=== PATIENT | female | born 1940 | race Caucasian/White ===

== ENCOUNTER 2018-11-07 10:52 | Emergency (ER) | payer MEDICARE ==
[~2018-11-07] VITALS: Ht 157.5 cm; Wt 46.8 kg
[2018-11-07 11:12] VITALS: BP 133/70
[2018-11-07] MEDS ORDERED: CYCL-1 PO (12:48)
[2018-11-07] MEDS ORDERED: IBUP-1984 PO (12:48)
[2018-11-07] MEDS ORDERED: ACET-2119 PO (12:48)
[2018-11-07] MEDS ORDERED: ketorolac tromethamine 15mg/ml inj. IM ONE (12:50)
[2018-11-07] MEDS ORDERED: HYDROcodone/acetaminophen 5mg/325mg tablet PO ONE (12:50)
== END 2018-11-07 13:46 | disposition home or self-care (01) ==
LOC: ER 10:53
DX: G89.29 Other chronic pain (principal); M54.89 Other dorsalgia; M40.209 Unspecified kyphosis, site unspecified; Z79.899 Other long term (current) drug therapy
CPT/HCPCS: 96372; 99284; J1885

== ENCOUNTER 2023-11-30 17:02 | Emergency (ER) | payer MEDICARE ==
[~2023-11-30] VITALS: Ht 152.4 cm; Wt 40.9 kg
[~2023-11-30 17:02] MED LIST: CYCL-1 PO
[2023-11-30 17:53] LABS: BASOPHILS # (AUTO) 0.1 X10'3 (0-0.2); HEMOGLOBIN 11.8 g/dl (12.0-16.0); NEUTROPHILS # (AUTO) 2.7 X10'3 (1.8-7.7)
[2023-11-30 17:55] LABS: BASOPHILS % (AUTO) 1.1 % (0-1); EOSINOPHILS % (AUTO) 0.9 % (0-6); LYMPHOCYTES # (AUTO) 1.5 X10'3 (1.1-4.8); LYMPHOCYTES % (AUTO) 32.1 % (21-51); MEAN CORPUSCULAR HEMOGLOBIN 30.9 PG (27.0-31.0); MEAN CORPUSCULAR HGB CONC 32.8 g/dL (33.0-36.5); MEAN CORPUSCULAR VOLUME 94.2 FL (78-98); MEAN PLATELET VOLUME 8.8 FL (7.4-10.4); MONOCYTES # (AUTO) 0.4 X10'3 (0-0.9); MONOCYTES % (AUTO) 7.8 % (2-12); NEUTROPHILS % (AUTO) 58.1 % (42-75); PLATELET COUNT 173 X10'3 (140-440); RED BLOOD COUNT 3.82 X10'6 (4.20-5.60); RED CELL DISTRIBUTION WIDTH 13.9 % (11.5-14.5); WHITE BLOOD COUNT 4.7 X10'3 (4.5-11.0)
[2023-11-30 18:05] LABS: ALBUMIN 3.2 G/DL (3.4-5.0); ANION GAP 7 (8-16); BLOOD UREA NITROGEN 34 MG/DL (7-18); BUN/CREATININE RATIO 21.8 (10.0-20.0); CALCIUM 8.2 MG/DL (8.5-10.1); CHLORIDE 105 MMOL/L (99-107); CREATININE 1.56 MG/DL (0.40-0.90); GLUCOSE 104 MG/DL (70-104); POTASSIUM 3.8 MMOL/L (3.5-5.1); SODIUM 139 MMOL/L (135-145); TOTAL CARBON DIOXIDE 27.2 MMOL/L (24-32); eCRCL 18 ML/MIN; eGFR 32 ML/MIN
[2023-11-30 18:54] LABS: BILIRUBIN,URINE NEGATIVE (Neg); CLARITY,URINE CLEAR (Clear); COLOR,URINE STRAW (Yellow); GLUCOSE, URINE NEGATIVE (Neg); KETONES,URINE NEGATIVE (Neg); LEUKOCYTE ESTERASE ,URINE NEGATIVE (Neg); NITRITES, URINE NEGATIVE (Neg); OCCULT BLOOD,URINE TRACE-INTACT (Neg); PH,URINE 6.5 (4.8-8.0); PROTEIN,URINE NEGATIVE (Neg); UROBILINOGEN,URINE 0.2 E.U/dL (0.2-1.0)
[2023-11-30 18:59] LABS: UA COLLECTION TYPE URINAL
[2023-11-30 19:16] VITALS: BP 133/74; PULSE 86; RESP 19; TEMP 97.9; O2SAT 96
[2023-11-30 19:19] LABS: MUCUS STRANDS NONE SEEN /LPF (Neg); SQUAMOUS EPITHELIAL CELL,UR FEW /LPF (FEW)
[2023-11-30 19:21] LABS: BACTERIA,URINE FEW /HPF (Neg); WBC,URINE 0-4 /HPF (0-4)
== END 2023-11-30 20:09 | disposition home or self-care (01) ==
LOC: ER 17:02
DX: I47.10 Supraventricular tachycardia, unspecified (principal); G89.29 Other chronic pain; M54.9 Dorsalgia, unspecified
CPT/HCPCS: 36415; 80048; 81001; 83735; 85025; 93005; 99284